=== PATIENT | male | born 1955 | race Caucasian/White ===

== ENCOUNTER 2018-07-10 09:56 | Emergency (ER) | payer OTHER ==
[~2018-07-10] VITALS: Ht 180.3 cm; Wt 78.9 kg
[2018-07-10] MEDS ORDERED: SIMVASTATIN40 MG PO (10:07)
[2018-07-10] MEDS ORDERED: ACETAMINOPHEN-1 EAC1 PO (10:49)
[2018-07-10 11:08] VITALS: BP 173/98
== END 2018-07-10 11:09 | disposition home or self-care (01) ==
LOC: M.ERS 09:56
DX: S52.592A Other fractures of lower end of left radius, initial encounter for closed fracture (principal); E78.00 Pure hypercholesterolemia, unspecified; W01.0XXA Fall on same level from slipping, tripping and stumbling without subsequent striking against object, initial encounter; Y93.89 Activity, other specified; Y92.89 Other specified places as the place of occurrence of the external cause; Y99.8 Other external cause status